=== PATIENT | male | born 1965 | race Two or more races ===

== ENCOUNTER 2018-12-03 08:52 | Outpatient (CLI) | payer OTHER | END 2018-12-03 10:34 | disposition home or self-care (01) | LOC: LAB 08:52 | DX: E78.49 Other hyperlipidemia (principal); R42 Dizziness and giddiness; Z00.00 Encounter for general adult medical examination without abnormal findings; Z11.4 Encounter for screening for human immunodeficiency virus [HIV]; Z11.3 Encounter for screening for infections with a predominantly sexual mode of transmission ==

== ENCOUNTER 2019-01-29 13:39 | Outpatient (CLI) | payer OTHER | END 2019-01-29 13:45 | disposition home or self-care (01) | LOC: LAB 13:39 | DX: N40.0 Benign prostatic hyperplasia without lower urinary tract symptoms (principal) ==